=== PATIENT | female | born 1975 | race Caucasian/White ===

== ENCOUNTER 2019-09-28 08:42 | Emergency (ER) | payer MEDICAID ==
[~2019-09-28] VITALS: Ht 177.8 cm; Wt 116.0 kg
[2019-09-28] MEDS ORDERED: IPRATROPIUM BROMIDE (0.02%) 0.5MG/2.5ML NEB HHN ONE (09:45)
[2019-09-28] MEDS ORDERED: ALBUTEROL (0.083%) 2.5MG/3ML NEB HHN ONE (09:45)
[2019-09-28] MEDS ORDERED: IPRATROPIUM BROMIDE (0.02%) 0.5MG/2.5ML NEB HHN STA (11:06)
[2019-09-28] MEDS ORDERED: ALBUTEROL (0.083%) 2.5MG/3ML NEB HHN STA (11:06)
[2019-09-28] MEDS ORDERED: METHYLPREDNISOLONE SOD SUCC 125 MG/2 ML VIAL IM ONE (11:15)
[2019-09-28 13:25] VITALS: BP 140/93
== END 2019-09-28 13:36 | disposition home or self-care (01) ==
LOC: ER 08:42
DX: J06.9 Acute upper respiratory infection, unspecified (principal)
CPT/HCPCS: 71046; 87804; 94640; 96372; 99284; J2930; J7611; Z7610

== ENCOUNTER 2019-09-28 18:32 | Emergency (ER) | payer MEDICAID ==
[~2019-09-28] VITALS: Ht 175.3 cm; Wt 127.0 kg
[2019-09-28] MEDS ORDERED: ALBUTEROL (0.083%) 2.5MG/3ML NEB HHN STA (19:47)
[2019-09-28] MEDS ORDERED: IPRATROPIUM BROMIDE (0.02%) 0.5MG/2.5ML NEB HHN STA (19:47)
[2019-09-28 20:14] LABS: HEMATOCRIT. 39.6 % (36.0-48.0); HEMOGLOBIN. 13.4 g/dL (12.0-16.0); LYMPHOCYTES % 9.6 % (20.0-50.0); MEAN CORPUSCULAR HEMOGLOBIN 29.9 pg (28.0-32.0); MEAN CORPUSCULAR VOLUME 88.6 fL (81.0-99.0); MEAN PLATELET VOLUME 8.7 fl (7.4-10.4); NEUTROPHILS % 88.4 % (40.0-76.0); PLATELET 220 x1000/uL (130-400); RED BLOOD CELL COUNT 4.47 mill/uL (4.2-5.4); RED CELL DISTRIBUTION WIDTH 14.3 % (11.6-14.6)
[2019-09-28 20:21] LABS: CHLORIDE 107 mEq/L (98-107)
[2019-09-29 01:31] VITALS: BP 148/82
== END 2019-09-29 01:36 | disposition home or self-care (01) ==
LOC: ER 18:32
DX: J06.9 Acute upper respiratory infection, unspecified (principal); F17.200 Nicotine dependence, unspecified, uncomplicated; Z88.0 Allergy status to penicillin; Z90.49 Acquired absence of other specified parts of digestive tract
CPT/HCPCS: 36415; 71045; 80053; 83880; 84484; 85025; 93005; 94640; 99284; J7611; Z7610

== ENCOUNTER 2019-11-04 14:10 | Inpatient (IN) | payer MEDICAID ==
[~2019-11-04] VITALS: Ht 175.3 cm; Wt 136.5 kg
[2019-11-05] MEDS ORDERED: METHYLPREDNISOLONE SOD SUCC 125 MG/2 ML VIAL IV STA (01:14)
[2019-11-05] MEDS ORDERED: MORPHINE SULFATE 4 MG/ML CPJ (NOT FOR IM USE) IV STA (01:14)
[2019-11-05] MEDS ORDERED: ONDANSETRON HCL 4MG/2ML INJ IV STA (01:14)
[2019-11-05] MEDS ORDERED: SODIUM CHLORIDE 0.9% 1,000 ML IV ONE (01:14)
[2019-11-05] MEDS ORDERED: IPRATROPIUM BROMIDE (0.02%) 0.5MG/2.5ML NEB HHN STA (01:14)
[2019-11-05] MEDS ORDERED: MAGNESIUM 2 G PREMIX 50 ML IV ONE (01:15)
[2019-11-05] MEDS: ALBUTEROL (0.083%) 2.5MG/3ML NEB HHN SCH ×2 (01:30→02:00)
[2019-11-05 01:54] LABS: BASOPHILS % 0.9 % (0.0-2.0); EOSINOPHILS % 3.2 % (0.0-5.0); HEMATOCRIT. 42.6 % (36.0-48.0); HEMOGLOBIN. 14.3 g/dL (12.0-16.0); LYMPHOCYTES % 22.6 % (20.0-50.0); MEAN CORPUSCULAR HEMOGLOBIN 30.4 pg (28.0-32.0); MEAN CORPUSCULAR VOLUME 90.5 fL (81.0-99.0); MEAN PLATELET VOLUME 9.5 fl (7.4-10.4); MONOCYTES % 9.7 % (2.0-8.0); NEUTROPHILS % 63.6 % (40.0-76.0); PLATELET 341 x1000/uL (130-400); RED BLOOD CELL COUNT 4.71 mill/uL (4.2-5.4); RED CELL DISTRIBUTION WIDTH 15.5 % (11.6-14.6)
[2019-11-05 02:00] LABS: CHLORIDE 102 mEq/L (98-107)
[2019-11-05 09:47] LABS: BG CARBOXYHEMOGLOBIN 0.6 % (0.5-1.5); BG DEOXYHEMOGLOBIN 6.7 % (0.0-5.0); BG FRACTION INSPIRED OXYGEN 21; BG HCO3 ACT 22.3 mmol/L (22.0-26.0); BG METHEMOGLOBIN 0.3 % (0.0-1.5); BG OXYGEN SATURATION 93.2 % (92.0-98.5); BG OXYHEMOGLOBIN 92.4 % (94.0-97.0); BG PCO2 41.2 mmHg (35.0-45.0); BG PH 7.352 (7.350-7.450); BG SAMPLE SITE RIGHT RADIAL; BG TOTAL HEMOGLOBIN 13.4 g/dL (12.0-18.0); BG VENT MODE ROOM AIR
[2019-11-05] MEDS ORDERED: BENZONATATE 100MG CAPSULE PO PRN (10:45)
[2019-11-05] MEDS ORDERED: ONDANSETRON HCL 4MG/2ML INJ IV PRN (10:45)
[2019-11-05] MEDS ORDERED: ACETAMINOPHEN 325MG TABLET PO PRN (10:45)
[2019-11-05] MEDS ORDERED: IPRATROPIUM/ALBUTEROL 0.5-3(2.5)MG/3ML NEB HHN PRN (10:45)
[2019-11-05] MEDS: METHYLPREDNISOLONE SOD SUCC 40 MG/ML VIAL IV SCH ×2 (12:08→20:44)
[2019-11-05] MEDS ORDERED: BENZ-16 MT (17:31)
[2019-11-05] MEDS ORDERED: P20 MT (17:31)
[2019-11-05] MEDS ORDERED: ALBU18HF2 IH (17:31)
[2019-11-05] MEDS ORDERED: FLUT1DIS3 INH (17:31)
[2019-11-05 20:00] VITALS: BP 122/67
[2019-11-05 20:28] VITALS: BP 122/67
[2019-11-05] MEDS: GUAIFENESIN 600MG ER TABLET PO SCH (20:44)
[2019-11-06] VITALS (7 sets, daily range): BP systolic 110–123; BP diastolic 63–79
[2019-11-06] MEDS: IPRATROPIUM/ALBUTEROL 0.5-3(2.5)MG/3ML NEB HHN SCH ×6 (01:45→21:01)
[2019-11-06] MEDS: METHYLPREDNISOLONE SOD SUCC 40 MG/ML VIAL IV SCH ×3 (03:25→20:13)
[2019-11-06 08:39] LABS: CLARITY URINE CLEAR (CLEAR); COLOR URINE YELLOW (YELLOW); KETONES URINE NEGATIVE (NEGATIVE); LEUKOCYTE ESTERASE URINE NEGATIVE (NEGATIVE); NITRITE URINE NEGATIVE (NEGATIVE); OCCULT BLOOD URINE NEGATIVE (NEGATIVE); PH URINE 6.5 (4.5-8.0); PROTEIN URINE NEGATIVE (NEGATIVE); SPECIFIC GRAVITY URINE 1.018 (1.005-1.030)
[2019-11-06 09:01] LABS: CHLORIDE 104 mEq/L (98-107)
[2019-11-06 09:09] LABS: *AMPHETAMINES SCREEN URINE NEGATIVE (NEGATIVE)
[2019-11-06 09:10] LABS: *BARBITURATES SCREEN URINE NEGATIVE (NEGATIVE); *BENZODIAZEPINES SCREEN URINE NEGATIVE (NEGATIVE); *COCAINE SCREEN URINE NEGATIVE (NEGATIVE); METHADONE URINE SCREEN NEGATIVE (NEGATIVE); PHENCYCLIDINE URINE SCREEN NEGATIVE (NEGATIVE)
[2019-11-06 09:11] LABS: CANNABINOID URINE SCREEN NEGATIVE (NEGATIVE)
[2019-11-06 09:13] LABS: BASOPHILS % 0.3 % (0.0-2.0); EOSINOPHILS % 0.1 % (0.0-5.0); HEMATOCRIT. 39.1 % (36.0-48.0); HEMOGLOBIN. 13.1 g/dL (12.0-16.0); LYMPHOCYTES % 11.6 % (20.0-50.0); MEAN CORPUSCULAR HEMOGLOBIN 29.9 pg (28.0-32.0); MEAN CORPUSCULAR VOLUME 89.2 fL (81.0-99.0); MEAN PLATELET VOLUME 9.5 fl (7.4-10.4); MONOCYTES % 5.8 % (2.0-8.0); NEUTROPHILS % 82.2 % (40.0-76.0); PLATELET 277 x1000/uL (130-400); RED BLOOD CELL COUNT 4.38 mill/uL (4.2-5.4); RED CELL DISTRIBUTION WIDTH 15.2 % (11.6-14.6)
[2019-11-06 09:16] LABS: OPIATES URINE SCREEN PRESUMTIVE POSITIVE (NEGATIVE)
[2019-11-06] MEDS: GUAIFENESIN 600MG ER TABLET PO SCH ×2 (09:17→20:13)
[2019-11-06] MEDS ORDERED: IPRA3AMP9 NEB (12:55)
[2019-11-07] VITALS: BP 126/75
[2019-11-07] MEDS: IPRATROPIUM/ALBUTEROL 0.5-3(2.5)MG/3ML NEB HHN SCH ×4 (01:05→11:56)
[2019-11-07] MEDS: METHYLPREDNISOLONE SOD SUCC 40 MG/ML VIAL IV SCH ×2 (03:24→11:03)
[2019-11-07 04:00] VITALS: BP 129/56
[2019-11-07] MEDS: GUAIFENESIN 600MG ER TABLET PO SCH (08:50)
[2019-11-07 12:06] VITALS: BP 121/76
== END 2019-11-07 13:14 | disposition home or self-care (01) | DRG 141 ==
LOC: ER 14:10 → 7WST 11-05 02:47 → EDBEDREQTM 11-05 02:57 → EDBEDREQ 11-05 02:57 → ENRESERV 11-05 17:56
PROVIDERS: ADMIT Internal Medicine; ATTEND Internal Medicine
DX: J45.901 Unspecified asthma with (acute) exacerbation (principal); E66.01 Morbid (severe) obesity due to excess calories; E87.2 Acidosis; F17.210 Nicotine dependence, cigarettes, uncomplicated; J06.9 Acute upper respiratory infection, unspecified; Z90.89 Acquired absence of other organs; Z88.0 Allergy status to penicillin; Z71.6 Tobacco abuse counseling; Z71.3 Dietary counseling and surveillance; Z68.41 Body mass index [BMI] 40.0-44.9, adult; Z79.899 Other long term (current) drug therapy
CPT/HCPCS: 36415; 36600; 71045; 80048; 80053; 80305; 81003; 81025; 82375; 82805; 83605; 83880; 84145; 84484; 85025; 85379; 87804; 93005; 93970; 94640; 96365; 96375; 99285; 99406; J2270; J2405; J2920; J2930; J3475; J7030

== ENCOUNTER 2021-03-04 19:12 | Inpatient (IN) | payer MEDICAID, OTHER ==
[~2021-03-04] VITALS: Ht 158.8 cm; Wt 123.8 kg
[~2021-03-04 19:12] MED LIST: ALBU18HF2 IH; BENZ-16 MT; FLUT1DIS3 INH; IPRA3AMP9 NEB; P20 MT
[2021-03-04 21:14] LABS: CHLORIDE 104 mEq/L (98-107)
[2021-03-04 21:22] LABS: ETHANOL BLOOD < 10 mg/dL
[2021-03-04 21:24] LABS: LDL CHOLESTEROL 105 mg/dL (5-100)
[2021-03-04] MEDS ORDERED: ASPIRIN 300MG SUPP PR ONE (22:15)
[2021-03-04 22:34] LABS: CLARITY URINE CLOUDY (CLEAR); COLOR URINE YELLOW (YELLOW); KETONES URINE NEGATIVE (NEGATIVE); LEUKOCYTE ESTERASE URINE 3+ (NEGATIVE); NITRITE URINE NEGATIVE (NEGATIVE); OCCULT BLOOD URINE 3+ (NEGATIVE); PROTEIN URINE 3+ (NEGATIVE); SPECIFIC GRAVITY URINE 1.019 (1.005-1.030); UROBILINOGEN URINE 0.2 E.U./dL (0.2-1.0)
[2021-03-04 22:53] LABS: *AMPHETAMINES SCREEN URINE NEGATIVE (NEGATIVE); *BENZODIAZEPINES SCREEN URINE NEGATIVE (NEGATIVE); METHADONE URINE SCREEN NEGATIVE (NEGATIVE)
[2021-03-04 22:54] LABS: *BARBITURATES SCREEN URINE NEGATIVE (NEGATIVE); *COCAINE SCREEN URINE NEGATIVE (NEGATIVE); CANNABINOID URINE SCREEN NEGATIVE (NEGATIVE); OPIATES URINE SCREEN PRESUMTIVE POSITIVE (NEGATIVE); PHENCYCLIDINE URINE SCREEN NEGATIVE (NEGATIVE)
[2021-03-04 23:04] LABS: BASOPHILS % 0.7 % (0.0-2.0); EOSINOPHILS % 0.8 % (0.0-5.0); HEMATOCRIT. 27.4 % (36.0-48.0); HEMOGLOBIN. 9.2 g/dL (12.0-16.0); MEAN CORPUSCULAR HEMOGLOBIN 30.2 pg (28.0-32.0); MEAN CORPUSCULAR VOLUME 90.4 fL (81.0-99.0); MEAN PLATELET VOLUME 9.6 fl (7.4-10.4); MONOCYTES % 13.6 % (2.0-8.0); NEUTROPHILS % 49.9 % (40.0-76.0); RED BLOOD CELL COUNT 3.04 mill/uL (4.2-5.4); RED CELL DISTRIBUTION WIDTH 17.5 % (11.6-14.6)
[2021-03-04] MEDS ORDERED: IOHEXOL-350 100 ML BOTTLE ONE (23:36)
[2021-03-05] VITALS (8 sets, daily range): BP systolic 125–159; BP diastolic 50–113
[2021-03-05 08:42] LABS: HEMATOCRIT. 26.3 % (36.0-48.0); HEMOGLOBIN. 8.6 g/dL (12.0-16.0); MEAN CORPUSCULAR HEMOGLOBIN 30.1 pg (28.0-32.0); MEAN CORPUSCULAR VOLUME 91.3 fL (81.0-99.0); MEAN PLATELET VOLUME 9.3 fl (7.4-10.4); RED BLOOD CELL COUNT 2.88 mill/uL (4.2-5.4)
[2021-03-05 08:47] LABS: CHLORIDE 107 mEq/L (98-107)
[2021-03-05 08:55] LABS: LDL CHOLESTEROL 98 mg/dL (5-100)
[2021-03-05 08:56] LABS: HDL CHOLESTEROL 59 mg/dL (40-59)
[2021-03-05] MEDS ORDERED: PANTOPRAZOLE SODIUM 40 MG/VIAL IV SCH (09:00)
[2021-03-05] MEDS: ASPIRIN 300MG SUPP PR SCH ×2 (09:00→11:19)
[2021-03-05 09:11] LABS: PLATELET 35 x1000/uL (130-400)
[2021-03-05] MEDS: DEXT 5%/0.45% NACL KCL 20MEQ/L 1,000 ML IV SCH ×2 (11:20→21:36)
[2021-03-05 12:55] LABS: TOTAL IRON BINDING CAPACITY 238 ug/dL (250-450)
[2021-03-05 17:55] LABS: PLATELET ESTIMATE MARKEDLY DECREASED
[2021-03-05 20:44] LABS: CLARITY URINE CLOUDY (CLEAR); COLOR URINE YELLOW (YELLOW); KETONES URINE NEGATIVE (NEGATIVE); LEUKOCYTE ESTERASE URINE 3+ (NEGATIVE); NITRITE URINE NEGATIVE (NEGATIVE); OCCULT BLOOD URINE 2+ (NEGATIVE); PH URINE 7.5 (4.5-8.0); PROTEIN URINE 2+ (NEGATIVE); SPECIFIC GRAVITY URINE 1.012 (1.005-1.030); UROBILINOGEN URINE 0.2 E.U./dL (0.2-1.0)
[2021-03-05] MEDS ORDERED: LORAZEPAM 2MG/ML CPJ IV PRN (20:45)
[2021-03-05] MEDS: ATORVASTATIN CALCIUM 40MG TABLET PO SCH (21:35)
[2021-03-06] VITALS (11 sets, daily range): BP systolic 92–186; BP diastolic 37–113
[2021-03-06 05:59] LABS: HEMATOCRIT. 29.2 % (36.0-48.0); HEMOGLOBIN. 9.5 g/dL (12.0-16.0); MEAN CORPUSCULAR HEMOGLOBIN 30.3 pg (28.0-32.0); MEAN CORPUSCULAR VOLUME 93.6 fL (81.0-99.0); RED BLOOD CELL COUNT 3.12 mill/uL (4.2-5.4)
[2021-03-06 07:57] LABS: CHLORIDE 108 mEq/L (98-107)
[2021-03-06] MEDS: DEXT 5%/0.45% NACL KCL 20MEQ/L 1,000 ML IV SCH (10:40)
[2021-03-06] MEDS: LORAZEPAM 1MG TABLET PO PRN ×3 (10:46→18:35)
[2021-03-06] MEDS: LOSARTAN POTASSIUM 100 MG TABLET PO SCH (10:46)
[2021-03-06] MEDS: PANTOPRAZOLE 40MG DR TABLET PO SCH (10:53)
[2021-03-06] MEDS ORDERED: CEFTRIAXONE 1 G PREMIX 50 ML IV SCH (12:15)
[2021-03-06 12:28] LABS: PLATELET 29 x1000/uL (130-400)
[2021-03-06] MEDS: LEVOFLOXACIN 500MG TABLET PO SCH (12:40)
[2021-03-06 13:12] LABS: PLATELET ESTIMATE DECREASED
[2021-03-06 13:13] LABS: MEAN PLATELET VOLUME 9.9 fl (7.4-10.4); PLATELET 80 x1000/uL (130-400)
[2021-03-06] MEDS: RISPERIDONE 0.5MG TABLET PO SCH ×2 (14:31→17:24)
[2021-03-06] MEDS: HYDROCODONE/ACETAMINOPHEN 5/325MG TABLET PO PRN ×2 (14:32→18:34)
[2021-03-06] MEDS: ATORVASTATIN CALCIUM 40MG TABLET PO SCH (21:27)
[2021-03-06] MEDS: CLONIDINE 0.1MG TABLET PO PRN (21:34)
[2021-03-07] VITALS (11 sets, daily range): BP systolic 115–160; BP diastolic 65–103
[2021-03-07] MEDS: CLONIDINE 0.1MG TABLET PO PRN (00:08)
[2021-03-07] MEDS: RISPERIDONE 0.5MG TABLET PO SCH ×2 (08:51→16:01)
[2021-03-07] MEDS: PANTOPRAZOLE 40MG DR TABLET PO SCH (08:51)
[2021-03-07] MEDS: LORAZEPAM 1MG TABLET PO PRN ×3 (08:51→15:59)
[2021-03-07] MEDS: HYDROCODONE/ACETAMINOPHEN 5/325MG TABLET PO PRN ×3 (08:51→15:59)
[2021-03-07] MEDS: LOSARTAN POTASSIUM 100 MG TABLET PO SCH (08:51)
[2021-03-07] MEDS ORDERED: ACETAMINOPHEN 325MG TABLET PO PRN (11:30)
[2021-03-07] MEDS: LEVOFLOXACIN 500MG TABLET PO SCH (12:10)
[2021-03-07] MEDS: DEXT 5%/0.45% NACL KCL 20MEQ/L 1,000 ML IV SCH ×2 (13:20)
[2021-03-07] MEDS: ATORVASTATIN CALCIUM 40MG TABLET PO SCH (21:12)
[2021-03-08] VITALS (12 sets, daily range): BP systolic 0–149; BP diastolic 0–106
[2021-03-08] MEDS: DEXT 5%/0.45% NACL KCL 20MEQ/L 1,000 ML IV SCH (02:40)
[2021-03-08] MEDS: LORAZEPAM 1MG TABLET PO PRN ×3 (02:42→16:27)
[2021-03-08 06:25] LABS: HEMATOCRIT. 35.6 % (36.0-48.0); HEMOGLOBIN. 11.3 g/dL (12.0-16.0); MEAN CORPUSCULAR HEMOGLOBIN 29.7 pg (28.0-32.0); MEAN CORPUSCULAR VOLUME 93.7 fL (81.0-99.0); MEAN PLATELET VOLUME 9.4 fl (7.4-10.4); PLATELET 152 x1000/uL (130-400); RED CELL DISTRIBUTION WIDTH 18.6 % (11.6-14.6)
[2021-03-08] MEDS: PANTOPRAZOLE 40MG DR TABLET PO SCH (09:18)
[2021-03-08] MEDS: RISPERIDONE 0.5MG TABLET PO SCH ×2 (09:18→16:27)
[2021-03-08] MEDS: LOSARTAN POTASSIUM 100 MG TABLET PO SCH (09:18)
[2021-03-08] MEDS: LEVOFLOXACIN 500MG TABLET PO SCH (10:41)
[2021-03-08 19:07] LABS: PLATELET ESTIMATE NORMAL
[2021-03-08] MEDS: ATORVASTATIN CALCIUM 40MG TABLET PO SCH (22:31)
[2021-03-08] MEDS: NITROFURANTOIN 100MG M/M CAPSULE PO SCH (22:34)
[2021-03-09] VITALS: BP 0/0
[2021-03-09 02:00] VITALS: BP 0/0
[2021-03-09 04:00] VITALS: BP 113/84
[2021-03-09] MEDS: LORAZEPAM 1MG TABLET PO PRN (04:04)
[2021-03-09 06:00] VITALS: BP 162/90
[2021-03-09 06:19] LABS: HEMATOCRIT. 37.6 % (36.0-48.0); HEMOGLOBIN. 12.1 g/dL (12.0-16.0); MEAN CORPUSCULAR HEMOGLOBIN 29.9 pg (28.0-32.0); MEAN CORPUSCULAR VOLUME 93.1 fL (81.0-99.0); MEAN PLATELET VOLUME 9.4 fl (7.4-10.4); PLATELET 239 x1000/uL (130-400); RED BLOOD CELL COUNT 4.04 mill/uL (4.2-5.4); RED CELL DISTRIBUTION WIDTH 18.9 % (11.6-14.6)
[2021-03-09] MEDS: RISPERIDONE 0.5MG TABLET PO SCH (12:11)
[2021-03-09] MEDS: PANTOPRAZOLE 40MG DR TABLET PO SCH (12:11)
[2021-03-09] MEDS: NITROFURANTOIN 100MG M/M CAPSULE PO SCH ×2 (12:11→20:13)
[2021-03-09] MEDS: LOSARTAN POTASSIUM 100 MG TABLET PO SCH (12:12)
[2021-03-09 15:04] LABS: PLATELET ESTIMATE NORMAL
[2021-03-09 20:00] VITALS: BP 129/79
[2021-03-09] MEDS: ATORVASTATIN CALCIUM 40MG TABLET PO SCH (20:14)
[2021-03-09 22:00] VITALS: BP 112/65
[2021-03-10] VITALS: BP 126/87
[2021-03-10 02:00] VITALS: BP 139/89
[2021-03-10 05:43] VITALS: BP 132/73
[2021-03-10 08:00] VITALS: BP 128/79
[2021-03-10] MEDS: PANTOPRAZOLE 40MG DR TABLET PO SCH (09:00)
[2021-03-10] MEDS: NITROFURANTOIN 100MG M/M CAPSULE PO SCH (09:00)
[2021-03-10] MEDS: RISPERIDONE 0.5MG TABLET PO SCH (09:00)
[2021-03-10] MEDS: LOSARTAN POTASSIUM 100 MG TABLET PO SCH (09:00)
[2021-03-10] MEDS ORDERED: SODIUM BICARBONATE 4% (2.4MEQ) 5ML VIAL IV ONE (09:03)
[2021-03-10] MEDS ORDERED: LIDOCAINE HCL 1% 20ML VIAL (Pyxis) INJ ONE (09:03)
[2021-03-10 09:12] LABS: HEMATOCRIT 36.4 % (36.0-48.0); HEMOGLOBIN 11.7 g/dL (12.0-16.0); MEAN CORPUSCULAR HEMOGLOBIN 30.4 pg (28.0-32.0); MEAN CORPUSCULAR VOLUME 94.6 fL (81.0-99.0); PLATELET 263 x1000/uL (130-400); RED BLOOD CELL COUNT 3.85 mill/uL (4.2-5.4); RED CELL DISTRIBUTION WIDTH 19.2 % (11.6-14.6)
[2021-03-10 09:18] LABS: INR 1.1; PARTIAL THROMBOPLASTIN TIME 23.5 sec (23.4-31.0); PROTHROMBIN TIME 12.2 sec (9.6-11.0)
[2021-03-10] MEDS ORDERED: IOHEXOL-300 100 ML BOTTLE ONE (09:21)
[2021-03-10] MEDS ORDERED: HYDROMORPHONE HCL/PF 2MG/ML CPJ IV PRN (09:45)
[2021-03-10] MEDS ORDERED: ONDANSETRON HCL 4MG/2ML INJ IV PRN (09:45)
[2021-03-10] MEDS ORDERED: MEPERIDINE HCL/PF 25MG/ML CPJ IV PRN (09:45)
[2021-03-10] MEDS ORDERED: DEXAMETHASONE 4MG/ML 1ML VIAL ONE (09:53)
[2021-03-10] MEDS ORDERED: HYDROMORPHONE HCL/PF 2MG/ML (OR) ONE (09:54)
[2021-03-10] MEDS ORDERED: CALCIUM CHLORIDE 1GM/10ML SYR IV ONE (10:27)
[2021-03-10] MEDS ORDERED: CEFAZOLIN SODIUM 1000MG/VIAL ONE (10:28)
[2021-03-10 14:00] VITALS: BP 149/105
[2021-03-10 14:55] VITALS: BP 129/100
== END 2021-03-10 15:45 | DRG 45 ==
LOC: ER 19:12 → EDBEDREQSVC 21:17 → EDBEDREQTM 21:50 → EDBEDREQ 21:50 → EDBEDREQSVC 21:50 → 5EST 21:53 → EDBEDREQTM 03-05 02:08 → EDBEDREQSVC 03-05 02:08 → ENRESERV 03-05 02:16 → 5EST 03-05 04:57
PROVIDERS: ADMIT Internal Medicine; ATTEND Internal Medicine
PROC: 4A10X4Z Monitoring of Central Nervous Electrical Activity, External Approach (ICD-10-PCS; 2021-03-07)
PROC: 0T913ZZ Drainage of Left Kidney, Percutaneous Approach (ICD-10-PCS; principal; 2021-03-10)
PROC: 0T903ZZ Drainage of Right Kidney, Percutaneous Approach (ICD-10-PCS; 2021-03-10)
DX: I63.512 Cerebral infarction due to unspecified occlusion or stenosis of left middle cerebral artery (principal); G93.40 Encephalopathy, unspecified; D69.6 Thrombocytopenia, unspecified; E87.1 Hypo-osmolality and hyponatremia; R41.4 Neurologic neglect syndrome; E66.01 Morbid (severe) obesity due to excess calories; C67.9 Malignant neoplasm of bladder, unspecified; D64.9 Anemia, unspecified; G51.0 Bell's palsy; Z20.822 Contact with and (suspected) exposure to COVID-19; R47.01 Aphasia; I10 Essential (primary) hypertension; N39.0 Urinary tract infection, site not specified; Z88.0 Allergy status to penicillin; Z85.42 Personal history of malignant neoplasm of other parts of uterus; Z90.49 Acquired absence of other specified parts of digestive tract; Z79.899 Other long term (current) drug therapy; Z68.42 Body mass index [BMI] 45.0-49.9, adult
CPT/HCPCS: 36415; 50432; 50435; 70496; 70498; 70551; 71045; 76770; 80048; 80053; 80061; 80305; 80320; 81003; 82728; 82962; 83540; 83550; 83721; 84484; 85025; 85027; 87077; 87186; 87426; 92610; 93005; 95816; 97110; 97112; 97162; 97166; 97530; 99285; A6261; C1725; C1729; C1769; C9113; J0690; J1100; J1170; J3490; J7040; Q9967; G0480

== ENCOUNTER 2021-07-22 00:21 | Inpatient (IN) | payer MEDICAID, OTHER ==
[~2021-07-22] VITALS: Ht 175.3 cm; Wt 112.5 kg
[2021-07-22] MEDS ORDERED: MORPHINE SULFATE 4 MG/ML CPJ (NOT FOR IM USE) IV STA (00:34)
[2021-07-22] MEDS ORDERED: ONDANSETRON HCL 4MG/2ML INJ IV STA (00:34)
[2021-07-22] MEDS ORDERED: SODIUM CHLORIDE 0.9% 1,000 ML IV ONE (00:45)
[2021-07-22 01:03] LABS: BASOPHILS % 0.4 % (0.0-2.0); EOSINOPHILS % 0.2 % (0.0-5.0); HEMATOCRIT. 39.3 % (36.0-48.0); HEMOGLOBIN. 12.9 g/dL (12.0-16.0); LYMPHOCYTES % 5.6 % (20.0-50.0); MEAN CORPUSCULAR HEMOGLOBIN 30.3 pg (28.0-32.0); MEAN CORPUSCULAR VOLUME 92.2 fL (81.0-99.0); MONOCYTES % 4.5 % (2.0-8.0); NEUTROPHILS % 89.3 % (40.0-76.0); RED BLOOD CELL COUNT 4.27 mill/uL (4.2-5.4); RED CELL DISTRIBUTION WIDTH 16.6 % (11.6-14.6)
[2021-07-22 01:20] LABS: CHLORIDE 103 mEq/L (98-107)
[2021-07-22 01:24] LABS: HCG SCREEN NEGATIVE
[2021-07-22 01:55] LABS: CLARITY URINE TURBID (CLEAR); KETONES URINE NEGATIVE (NEGATIVE); LEUKOCYTE ESTERASE URINE 3+ (NEGATIVE); NITRITE URINE NEGATIVE (NEGATIVE); OCCULT BLOOD URINE 1+ (NEGATIVE); OCCULT BLOOD URINE NEGATIVE (NEGATIVE); PH URINE 7.5 (4.5-8.0); PH URINE >=9.0 (4.5-8.0); PROTEIN URINE 2+ (NEGATIVE); SPECIFIC GRAVITY URINE 1.014 (1.005-1.030); UROBILINOGEN URINE 0.2 E.U./dL (0.2-1.0)
[2021-07-22 02:00] LABS: PROTHROMBIN TIME 10.8 sec (9.6-11.0)
[2021-07-22 02:02] LABS: MEAN PLATELET VOLUME 7.9 fl (7.4-10.4); PLATELET 401 x1000/uL (130-400)
[2021-07-22] MEDS ORDERED: CEFEPIME 2,000 MG in DEXT 5% WATER 100 ML IV SCH (02:30)
[2021-07-22] MEDS ORDERED: MORPHINE SULFATE 4 MG/ML CPJ (NOT FOR IM USE) IV ONE (02:30)
[2021-07-22 02:39] LABS: COLOR URINE ORANGE (YELLOW)
[2021-07-22 04:16] LABS: COLOR URINE YELLOW (YELLOW)
[2021-07-22 06:24] LABS: CLARITY URINE CLOUDY (CLEAR)
[2021-07-22] MEDS ORDERED: MORPHINE SULFATE 2 MG/ML CPJ (NOT FOR IM USE) IV SCH (06:30)
[2021-07-22] MEDS ORDERED: ONDANSETRON HCL 4MG/2ML INJ IV PRN (06:30)
[2021-07-22] MEDS ORDERED: NALOXONE HCL 0.4MG/ML VIAL IV PRN (07:00)
[2021-07-22 08:00] VITALS: BP 114/36
[2021-07-22] MEDS ORDERED: PIPERACILLIN/TAZOBACTAM 3.375GM/50ML PREMIX IV ONE (09:00)
[2021-07-22 10:14] VITALS: BP 114/46
[2021-07-22] MEDS: MORPHINE SULFATE 2 MG/ML CPJ (NOT FOR IM USE) IV PRN ×3 (10:53→20:08)
[2021-07-22] MEDS ORDERED: METH-773 PO (11:38)
[2021-07-22] MEDS ORDERED: LORA-249 PO (11:41)
[2021-07-22] MEDS ORDERED: PREG50CA PO (11:41)
[2021-07-22] MEDS ORDERED: OXYC10TA85 PO (11:41)
[2021-07-22] MEDS ORDERED: TAMS-11 PO (11:41)
[2021-07-22] MEDS ORDERED: OXYB5TAB17 PO (11:41)
[2021-07-22] MEDS ORDERED: CITA10SO PO (11:41)
[2021-07-22 12:00] VITALS: BP 107/66
[2021-07-22] MEDS ORDERED: *PATIENT'S OWN MEDICATION STORAGE XX SCH (12:00)
[2021-07-22] MEDS: PIPERACILLIN/TAZOBACTAM 3.375 G in DEXTROSE 5% WATER 50 ML IV SCH ×2 (12:17→20:08)
[2021-07-22] MEDS: SODIUM CHLORIDE 0.9% 1,000 ML IV SCH (12:18)
[2021-07-22] MEDS: ENOXAPARIN 30MG/0.3ML SYR SUBCUT SCH ×2 (12:18→20:07)
[2021-07-22] MEDS: HYDROCODONE/ACETAMINOPHEN 5/325MG TABLET PO PRN ×2 (12:29→18:17)
[2021-07-22 16:00] VITALS: BP 119/71
[2021-07-22 20:00] VITALS: BP 105/62
[2021-07-23] VITALS (7 sets, daily range): BP systolic 90–125; BP diastolic 37–75
[2021-07-23] MEDS: SODIUM CHLORIDE 0.9% 1,000 ML IV SCH ×2 (05:30→15:10)
[2021-07-23] MEDS: MORPHINE SULFATE 2 MG/ML CPJ (NOT FOR IM USE) IV PRN ×5 (05:42→23:56)
[2021-07-23 05:47] LABS: BASOPHILS % 0.2 % (0.0-2.0); EOSINOPHILS % 1.3 % (0.0-5.0); HEMATOCRIT. 30.5 % (36.0-48.0); LYMPHOCYTES % 9.1 % (20.0-50.0); MEAN CORPUSCULAR HEMOGLOBIN 29.9 pg (28.0-32.0); MEAN CORPUSCULAR VOLUME 91.2 fL (81.0-99.0); MEAN PLATELET VOLUME 8.3 fl (7.4-10.4); MONOCYTES % 4.8 % (2.0-8.0); NEUTROPHILS % 84.6 % (40.0-76.0); PLATELET 326 x1000/uL (130-400); RED BLOOD CELL COUNT 3.35 mill/uL (4.2-5.4); RED CELL DISTRIBUTION WIDTH 16.8 % (11.6-14.6)
[2021-07-23] MEDS: ENOXAPARIN 30MG/0.3ML SYR SUBCUT SCH (09:17)
[2021-07-23] MEDS: PIPERACILLIN/TAZOBACTAM 3.375 G in DEXTROSE 5% WATER 50 ML IV SCH ×2 (09:17→20:46)
[2021-07-23] MEDS: HYDROCODONE/ACETAMINOPHEN 5/325MG TABLET PO PRN (16:18)
[2021-07-23] MEDS ORDERED: LORAZEPAM 0.5MG TABLET PO NR (16:45)
[2021-07-23] MEDS: HYDROCODONE/ACETAMINOPHEN 10/325MG TABLET PO PRN ×2 (17:33→21:56)
[2021-07-24] VITALS (19 sets, daily range): BP systolic 96–125; BP diastolic 45–64
[2021-07-24] MEDS: HYDROCODONE/ACETAMINOPHEN 10/325MG TABLET PO PRN ×2 (02:15→06:41)
[2021-07-24] MEDS: SODIUM CHLORIDE 0.9% 1,000 ML IV SCH (04:11)
[2021-07-24] MEDS: MORPHINE SULFATE 2 MG/ML CPJ (NOT FOR IM USE) IV PRN (04:39)
[2021-07-24 06:35] LABS: HEMATOCRIT. 30.2 % (36.0-48.0); HEMOGLOBIN. 9.8 g/dL (12.0-16.0); MEAN CORPUSCULAR HEMOGLOBIN 29.8 pg (28.0-32.0); MEAN CORPUSCULAR VOLUME 91.3 fL (81.0-99.0); MEAN PLATELET VOLUME 8.3 fl (7.4-10.4); PLATELET 322 x1000/uL (130-400); RED BLOOD CELL COUNT 3.31 mill/uL (4.2-5.4); RED CELL DISTRIBUTION WIDTH 16.9 % (11.6-14.6)
[2021-07-24 07:28] LABS: PHOSPHORUS 4.5 mg/dL (2.5-4.9)
[2021-07-24] MEDS ORDERED: FENTANYL CITRATE/PF 50MCG/ML 2ML VIAL ONE (07:31)
[2021-07-24] MEDS ORDERED: IOHEXOL-300 50 ML BOTTLE IV ONE (07:31)
[2021-07-24] MEDS ORDERED: LIDOCAINE HCL 1% 20ML VIAL (Pyxis) INJ ONE (07:31)
[2021-07-24] MEDS ORDERED: SODIUM BICARBONATE 4% (2.4MEQ) 5ML VIAL IV ONE (07:31)
[2021-07-24] MEDS ORDERED: FENTANYL CITRATE/PF 50MCG/ML 2ML VIAL IV ONE (08:30)
[2021-07-24] MEDS: ENOXAPARIN 40MG/0.4ML SYR SUBCUT SCH (09:36)
[2021-07-24] MEDS: PIPERACILLIN/TAZOBACTAM 3.375 G in DEXTROSE 5% WATER 50 ML IV SCH ×2 (09:36→22:25)
[2021-07-24 11:44] LABS: PLATELET ESTIMATE NORMAL
[2021-07-24] MEDS: HYDROMORPHONE HCL/PF 2MG/ML CPJ IV PRN ×2 (12:41→20:57)
[2021-07-24] MEDS: OXYCODONE HCL 5MG TABLET PO PRN ×2 (17:29→23:22)
[2021-07-25] VITALS: BP 100/53
[2021-07-25 04:00] VITALS: BP 113/47
[2021-07-25] MEDS: SODIUM CHLORIDE 0.9% 1,000 ML IV SCH ×2 (06:55→20:05)
[2021-07-25 07:35] LABS: BASOPHILS % 0.6 % (0.0-2.0); HEMATOCRIT. 30.1 % (36.0-48.0); HEMOGLOBIN. 9.8 g/dL (12.0-16.0); LYMPHOCYTES % 11.9 % (20.0-50.0); MEAN CORPUSCULAR HEMOGLOBIN 29.7 pg (28.0-32.0); MEAN CORPUSCULAR VOLUME 91.3 fL (81.0-99.0); MEAN PLATELET VOLUME 8.4 fl (7.4-10.4); MONOCYTES % 5.3 % (2.0-8.0); NEUTROPHILS % 80.2 % (40.0-76.0); PLATELET 286 x1000/uL (130-400); RED CELL DISTRIBUTION WIDTH 17.6 % (11.6-14.6)
[2021-07-25 08:00] VITALS: BP 103/54
[2021-07-25 08:14] LABS: PHOSPHORUS 3.5 mg/dL (2.5-4.9)
[2021-07-25] MEDS: PIPERACILLIN/TAZOBACTAM 3.375 G in DEXTROSE 5% WATER 50 ML IV SCH ×2 (08:19→20:05)
[2021-07-25] MEDS: ENOXAPARIN 40MG/0.4ML SYR SUBCUT SCH (08:19)
[2021-07-25] MEDS: HYDROMORPHONE HCL/PF 2MG/ML CPJ IV PRN ×2 (08:20→11:39)
[2021-07-25 12:00] VITALS: BP 121/61
[2021-07-25] MEDS: OXYCODONE HCL 5MG TABLET PO PRN ×3 (14:10→22:31)
[2021-07-25] MEDS ORDERED: FOSF3PAC PO (15:37)
[2021-07-25 16:00] VITALS: BP 104/65
[2021-07-25 20:00] VITALS: BP 127/66
[2021-07-26] VITALS: BP 110/60
[2021-07-26 04:00] VITALS: BP 124/67
[2021-07-26 05:30] LABS: PHOSPHORUS 3.3 mg/dL (2.5-4.9)
[2021-07-26 05:37] LABS: HEMATOCRIT. 33.6 % (36.0-48.0); HEMOGLOBIN. 11.2 g/dL (12.0-16.0); MEAN CORPUSCULAR HEMOGLOBIN 30.1 pg (28.0-32.0); MEAN CORPUSCULAR VOLUME 90.1 fL (81.0-99.0); MEAN PLATELET VOLUME 8.4 fl (7.4-10.4); PLATELET 294 x1000/uL (130-400); RED BLOOD CELL COUNT 3.73 mill/uL (4.2-5.4); RED CELL DISTRIBUTION WIDTH 17.2 % (11.6-14.6)
[2021-07-26] MEDS: OXYCODONE HCL 5MG TABLET PO PRN (06:25)
[2021-07-26 08:00] VITALS: BP 153/81
[2021-07-26] MEDS: ENOXAPARIN 40MG/0.4ML SYR SUBCUT SCH (08:38)
[2021-07-26] MEDS: PIPERACILLIN/TAZOBACTAM 3.375 G in DEXTROSE 5% WATER 50 ML IV SCH (08:38)
[2021-07-26] MEDS: SODIUM CHLORIDE 0.9% 1,000 ML IV SCH (08:39)
[2021-07-26 09:10] VITALS: BP 153/81
[2021-07-26 11:59] LABS: PLATELET ESTIMATE NORMAL
== END 2021-07-26 10:16 | disposition home or self-care (01) | DRG 720 ==
LOC: ER 00:21 → MICUSO 01:41 → 7EST 04:50
PROVIDERS: ADMIT Internal Medicine; ATTEND Internal Medicine
PROC: 0T25X0Z Change Drainage Device in Kidney, External Approach (ICD-10-PCS; principal; 2021-07-24)
DX: A41.9 Sepsis, unspecified organism (principal); N17.0 Acute kidney failure with tubular necrosis; E44.0 Moderate protein-calorie malnutrition; D73.89 Other diseases of spleen; E87.1 Hypo-osmolality and hyponatremia; C67.9 Malignant neoplasm of bladder, unspecified; D64.9 Anemia, unspecified; N13.8 Other obstructive and reflux uropathy; C68.0 Malignant neoplasm of urethra; N13.6 Pyonephrosis; E66.9 Obesity, unspecified; J45.909 Unspecified asthma, uncomplicated; Z20.822 Contact with and (suspected) exposure to COVID-19; N26.1 Atrophy of kidney (terminal); N89.8 Other specified noninflammatory disorders of vagina; R65.20 Severe sepsis without septic shock; Z82.49 Family history of ischemic heart disease and other diseases of the circulatory system; Z85.51 Personal history of malignant neoplasm of bladder; Z86.73 Personal history of transient ischemic attack (TIA), and cerebral infarction without residual deficits; Z88.0 Allergy status to penicillin; Z90.49 Acquired absence of other specified parts of digestive tract; Z79.899 Other long term (current) drug therapy; Z68.36 Body mass index [BMI] 36.0-36.9, adult
CPT/HCPCS: 36415; 50435; 71045; 74176; 76700; 80048; 80053; 81003; 83605; 83735; 84100; 84145; 84484; 84703; 85025; 87077; 87186; 93005; 99152; 99153; 99291; C1729; C1769; C1893; J0692; J1170; J1650; J2270; J2405; J2543; J3010; J3490; J7030; J7040; J7060; Q9967; U0003; U0005; G0500

== ENCOUNTER 2021-08-24 14:03 | Emergency (ER) | payer OTHER ==
[~2021-08-24] VITALS: Ht 167.6 cm; Wt 85.0 kg
[~2021-08-24 14:03] MED LIST changes: +CITA10SO PO; +FOSF3PAC PO; +LORA-249 PO; +METH-773 PO; +NITR100C MT; +OXYB5TAB17 PO; +OXYC10TA85 PO; +PREG50CA PO; +SULF-299 MT; +TAMS-11 PO
[2021-08-24] MEDS ORDERED: OXYCODONE HCL 10MG TABLET SR 12HR PO ONE (15:45)
[2021-08-24] MEDS ORDERED: MORPHINE SULFATE 4 MG/ML CPJ (NOT FOR IM USE) IV ONE (17:30)
[2021-08-24] MEDS ORDERED: MORPHINE SULFATE 2 MG/ML CPJ (NOT FOR IM USE) IV NR (18:00)
[2021-08-24] MEDS ORDERED: OXYC10TA85 MT (19:34)
[2021-08-24 19:53] VITALS: BP 127/69
== END 2021-08-24 19:54 | disposition home or self-care (01) ==
LOC: ER 14:03
DX: G89.29 Other chronic pain (principal); R10.32 Left lower quadrant pain; Z90.49 Acquired absence of other specified parts of digestive tract; Z86.73 Personal history of transient ischemic attack (TIA), and cerebral infarction without residual deficits; Z85.51 Personal history of malignant neoplasm of bladder; Z88.0 Allergy status to penicillin
CPT/HCPCS: 96374; 99285; J2270; Z7610

== ENCOUNTER 2021-08-25 09:29 | Emergency (ER) | payer OTHER ==
[~2021-08-25] VITALS: Ht 167.6 cm; Wt 75.0 kg
[~2021-08-25 09:29] MED LIST changes: +OXYC10TA85 MT
[2021-08-25] MEDS ORDERED: MORPHINE SULFATE 4 MG/ML CPJ (NOT FOR IM USE) IV ONE ×2 (09:45→11:00)
[2021-08-25] MEDS ORDERED: MORPHINE SULFATE 2 MG/ML CPJ (NOT FOR IM USE) IV SCH ×2 (10:15→11:15)
[2021-08-25 10:37] LABS: BASOPHILS % 1.1 % (0.0-2.0); EOSINOPHILS % 1.4 % (0.0-5.0); HEMATOCRIT. 40.2 % (36.0-48.0); HEMOGLOBIN. 13.1 g/dL (12.0-16.0); LYMPHOCYTES % 22.5 % (20.0-50.0); MEAN CORPUSCULAR HEMOGLOBIN 30.1 pg (28.0-32.0); MEAN CORPUSCULAR VOLUME 92.2 fL (81.0-99.0); MEAN PLATELET VOLUME 8.5 fl (7.4-10.4); MONOCYTES % 6.4 % (2.0-8.0); NEUTROPHILS % 68.6 % (40.0-76.0); PLATELET 315 x1000/uL (130-400); RED BLOOD CELL COUNT 4.36 mill/uL (4.2-5.4); RED CELL DISTRIBUTION WIDTH 18.3 % (11.6-14.6)
[2021-08-25 10:41] LABS: PROTHROMBIN TIME 11.1 sec (9.6-11.0)
[2021-08-25 10:59] LABS: CHLORIDE 113 mEq/L (98-107)
[2021-08-25 11:31] LABS: CLARITY URINE CLOUDY (CLEAR); COLOR URINE YELLOW (YELLOW); KETONES URINE TRACE (NEGATIVE); LEUKOCYTE ESTERASE URINE 3+ (NEGATIVE); NITRITE URINE POSITIVE (NEGATIVE); OCCULT BLOOD URINE 1+ (NEGATIVE); PH URINE 6.5 (4.5-8.0); PROTEIN URINE 2+ (NEGATIVE); SPECIFIC GRAVITY URINE 1.021 (1.005-1.030)
[2021-08-25 11:40] VITALS: BP 124/82
[2021-08-25] MEDS ORDERED: ONDANSETRON HCL 4MG/2ML INJ IV PRN (13:15)
[2021-08-25] MEDS ORDERED: ACETAMINOPHEN 325MG TABLET PO PRN (13:15)
[2021-08-25] MEDS ORDERED: HYDROCODONE/ACETAMINOPHEN 10/325MG TABLET PO PRN (13:15)
[2021-08-25] MEDS ORDERED: NALOXONE HCL 0.4MG/ML VIAL IV PRN (13:30)
[2021-08-25] MEDS ORDERED: LEVOFLOXACIN 500MG PREMIX 100 ML IV SCH (14:00)
== END 2021-08-25 16:59 | disposition left against medical advice (07) ==
LOC: ER 09:41 → CANBEDREQ 16:57 → ER 16:59
DX: R10.2 Pelvic and perineal pain (principal); Z88.0 Allergy status to penicillin; Z79.899 Other long term (current) drug therapy; Z86.73 Personal history of transient ischemic attack (TIA), and cerebral infarction without residual deficits; Z90.49 Acquired absence of other specified parts of digestive tract
CPT/HCPCS: 36415; 80053; 81003; 83690; 85025; 85610; 87086; 87106; 96365; 96375; 96376; 99284; J1956; J2270; Z7610

== ENCOUNTER 2021-08-26 09:25 | Inpatient (IN) | payer OTHER ==
[~2021-08-26] VITALS: Ht 160 cm; Wt 102.5 kg
[2021-08-26] MEDS ORDERED: HYDROCODONE/ACETAMINOPHEN 5/325MG TABLET PO STA (14:38)
[2021-08-26] MEDS ORDERED: MORPHINE SULFATE 4 MG/ML CPJ (NOT FOR IM USE) IV STA (14:38)
[2021-08-26] MEDS ORDERED: SODIUM CHLORIDE 0.9% 1,000 ML IV ONE (14:45)
[2021-08-26 15:18] LABS: BASOPHILS % 0.8 % (0.0-2.0); EOSINOPHILS % 0.3 % (0.0-5.0); HEMOGLOBIN. 11.7 g/dL (12.0-16.0); LYMPHOCYTES % 9.5 % (20.0-50.0); MEAN CORPUSCULAR VOLUME 92.1 fL (81.0-99.0); MEAN PLATELET VOLUME 8.2 fl (7.4-10.4); MONOCYTES % 4.9 % (2.0-8.0); NEUTROPHILS % 84.5 % (40.0-76.0); PLATELET 326 x1000/uL (130-400); RED BLOOD CELL COUNT 3.91 mill/uL (4.2-5.4); RED CELL DISTRIBUTION WIDTH 17.9 % (11.6-14.6)
[2021-08-26 15:22] LABS: CHLORIDE 107 mEq/L (98-107)
[2021-08-26 15:25] LABS: INR 1.1; PROTHROMBIN TIME 11.8 sec (9.6-11.0)
[2021-08-26] MEDS ORDERED: MORPHINE SULFATE 10 MG/ML CPJ IM ONE (16:45)
[2021-08-26] MEDS ORDERED: MORPHINE SULFATE 4 MG/ML CPJ (NOT FOR IM USE) IV ONE (18:30)
[2021-08-26 19:26] LABS: CLARITY URINE TURBID (CLEAR); COLOR URINE YELLOW (YELLOW); KETONES URINE TRACE (NEGATIVE); LEUKOCYTE ESTERASE URINE 3+ (NEGATIVE); NITRITE URINE POSITIVE (NEGATIVE); OCCULT BLOOD URINE 2+ (NEGATIVE); PH URINE 5.5 (4.5-8.0); PROTEIN URINE 3+ (NEGATIVE); SPECIFIC GRAVITY URINE 1.016 (1.005-1.030); UROBILINOGEN URINE 0.2 E.U./dL (0.2-1.0)
[2021-08-26 19:27] LABS: CLARITY URINE CLOUDY (CLEAR); COLOR URINE YELLOW (YELLOW); KETONES URINE 2+ (NEGATIVE); LEUKOCYTE ESTERASE URINE 2+ (NEGATIVE); NITRITE URINE POSITIVE (NEGATIVE); OCCULT BLOOD URINE 1+ (NEGATIVE); PH URINE 6.5 (4.5-8.0); PROTEIN URINE 2+ (NEGATIVE); SPECIFIC GRAVITY URINE 1.019 (1.005-1.030); UROBILINOGEN URINE 0.2 E.U./dL (0.2-1.0)
[2021-08-26] MEDS: MEROPENEM 500 MG in SODIUM CHLORIDE 0.9% 50 ML IV SCH (20:25)
[2021-08-26 20:32] LABS: HCG SCREEN NEGATIVE
[2021-08-26 22:12] VITALS: BP 124/69
[2021-08-26 22:17] VITALS: BP 125/64
[2021-08-27] VITALS: BP_SYST 131; BP_SYST 145; BP_DIAS 70; BP_DIAS 87
[2021-08-27] MEDS ORDERED: HYDROCODONE/ACETAMINOPHEN 5/325MG TABLET PO PRN (00:30)
[2021-08-27] MEDS ORDERED: SODIUM CHLORIDE 0.9% 1,000 ML IV SCH (00:45)
[2021-08-27] MEDS ORDERED: KETOROLAC 10MG TABLET PO PRN (01:00)
[2021-08-27 04:00] VITALS: BP 126/69
[2021-08-27] MEDS: MEROPENEM 500 MG in SODIUM CHLORIDE 0.9% 50 ML IV SCH (04:00)
[2021-08-27 06:38] LABS: HEMATOCRIT 30.2 % (36.0-48.0); MEAN CORPUSCULAR HEMOGLOBIN 30.4 pg (28.0-32.0); MEAN CORPUSCULAR VOLUME 91.9 fL (81.0-99.0); PLATELET 255 x1000/uL (130-400); RED BLOOD CELL COUNT 3.29 mill/uL (4.2-5.4); RED CELL DISTRIBUTION WIDTH 18.1 % (11.6-14.6)
[2021-08-27 08:00] VITALS: BP 133/80
[2021-08-27 09:14] VITALS: BP 133/80
[2021-08-27] MEDS ORDERED: CLONIDINE 0.1MG TABLET PO PRN (12:30)
[2021-08-27] MEDS ORDERED: DOCUSATE SODIUM 100MG CAPSULE PO PRN (12:30)
[2021-08-27] MEDS ORDERED: MAGNESIUM/ALUMINUM HYDROXIDE/SIMETHICONE 30ML UDC PO PRN (12:30)
[2021-08-27] MEDS ORDERED: IPRATROPIUM/ALBUTEROL 0.5-3(2.5)MG/3ML NEB HHN PRN (12:30)
[2021-08-27] MEDS ORDERED: LORAZEPAM 0.5MG TABLET PO PRN (12:30)
[2021-08-27] MEDS ORDERED: ACETAMINOPHEN 325MG TABLET PO PRN (12:30)
[2021-08-27] MEDS ORDERED: ONDANSETRON HCL 4MG/2ML INJ IV PRN (12:30)
[2021-08-27] MEDS ORDERED: ENOXAPARIN 40MG/0.4ML SYR SUBCUT SCH ×2 (12:30→13:00)
[2021-08-27] MEDS ORDERED: NALOXONE HCL 0.4MG/ML VIAL IV PRN (12:45)
[2021-08-27] MEDS ORDERED: OXYCODONE HCL 5MG TABLET PO PRN (12:45)
[2021-08-27] MEDS ORDERED: TAMSULOSIN HCL 0.4MG SR CAPSULE PO SCH (13:00)
[2021-08-27] MEDS ORDERED: PREGABALIN 50 MG CAPSULE PO SCH (14:00)
[2021-08-27] MEDS ORDERED: METHOCARBAMOL 500MG TABLET PO SCH (14:00)
[2021-08-27] MEDS ORDERED: OXYBUTYNIN CHLORIDE 5MG TABLET PO SCH (14:00)
[2021-08-27] MEDS ORDERED: MEROPENEM 500 MG in SODIUM CHLORIDE 0.9% 50 ML IV SCH (14:00)
[2021-08-28] MEDS ORDERED: OMEPRAZOLE 20MG CAPSULE EXTENDED RELEASE PO SCH (06:40)
== END 2021-08-27 12:15 | disposition left against medical advice (07) | DRG 463 ==
LOC: ER 10:06 → 7EST 20:23 → EDBEDREQTM 20:31 → EDBEDREQ 20:31 → ENRESERV 21:16
PROVIDERS: ADMIT Internal Medicine; ATTEND Internal Medicine
DX: N39.0 Urinary tract infection, site not specified (principal); D64.9 Anemia, unspecified; E66.9 Obesity, unspecified; Z53.29 Procedure and treatment not carried out because of patient's decision for other reasons; Z82.49 Family history of ischemic heart disease and other diseases of the circulatory system; Z86.73 Personal history of transient ischemic attack (TIA), and cerebral infarction without residual deficits; Z68.41 Body mass index [BMI] 40.0-44.9, adult; Z87.440 Personal history of urinary (tract) infections; Z90.49 Acquired absence of other specified parts of digestive tract; Z71.3 Dietary counseling and surveillance; Z85.51 Personal history of malignant neoplasm of bladder; Z88.0 Allergy status to penicillin; Z79.899 Other long term (current) drug therapy; Z93.6 Other artificial openings of urinary tract status
CPT/HCPCS: 36415; 74176; 80048; 80053; 81003; 83605; 84703; 85025; 85027; 93005; 99285; J2185; J2270; J7030

== ENCOUNTER 2021-11-04 16:20 | Inpatient (IN) | payer MEDICAID, OTHER ==
[~2021-11-04] VITALS: Ht 165.1 cm; Wt 96.6 kg
[2021-11-04 18:22] LABS: HEMATOCRIT. 45.2 % (36.0-48.0); HEMOGLOBIN. 14.6 g/dL (12.0-16.0); MEAN CORPUSCULAR HEMOGLOBIN 29.9 pg (28.0-32.0); MEAN CORPUSCULAR VOLUME 92.5 fL (81.0-99.0); MEAN PLATELET VOLUME 8.8 fl (7.4-10.4); PLATELET 105 x1000/uL (130-400); RED BLOOD CELL COUNT 4.88 mill/uL (4.2-5.4); RED CELL DISTRIBUTION WIDTH 20.5 % (11.6-14.6)
[2021-11-04 18:29] LABS: CLARITY URINE TURBID (CLEAR); COLOR URINE DARK YELLOW (YELLOW); KETONES URINE TRACE (NEGATIVE); LEUKOCYTE ESTERASE URINE 3+ (NEGATIVE); NITRITE URINE NEGATIVE (NEGATIVE); OCCULT BLOOD URINE 3+ (NEGATIVE); PROTEIN URINE 3+ (NEGATIVE); SPECIFIC GRAVITY URINE 1.024 (1.005-1.030)
[2021-11-04] MEDS ORDERED: LEVOFLOXACIN 750MG PREMIX 150 ML IV ONE (21:15)
[2021-11-04 22:08] LABS: CHLORIDE 101 mEq/L (98-107)
[2021-11-04 23:36] LABS: PLATELET ESTIMATE DECREASED
[2021-11-05 09:00] VITALS: BP 127/88
[2021-11-05] MEDS ORDERED: KETOROLAC 15MG/ML VIAL IV PRN (09:30)
[2021-11-05] MEDS ORDERED: ACETAMINOPHEN 325MG TABLET PO PRN (09:30)
[2021-11-05] MEDS ORDERED: NALOXONE HCL 0.4MG/ML VIAL IV PRN (09:45)
[2021-11-05] MEDS ORDERED: MORP10SY6 MT (10:04)
[2021-11-05] MEDS ORDERED: INFLUENZA VACCINE 05/PF 0.5 ML SYRINGE IM ONE (10:15)
[2021-11-05] MEDS ORDERED: PNEUMOCOCCAL 23-VAL P-SAC VAC 0.5 ML IM ONE (10:15)
[2021-11-05 12:00] VITALS: BP 145/66
[2021-11-05] MEDS: MEROPENEM 1,000 MG in SODIUM CHLORIDE 0.9% 100 ML IV SCH ×2 (14:31→18:43)
[2021-11-05] MEDS: SODIUM CHLORIDE 0.9% 1,000 ML IV SCH (14:32)
[2021-11-05 16:00] VITALS: BP 153/82
[2021-11-05] MEDS ORDERED: DOCU250C69 MT (18:56)
[2021-11-05] MEDS ORDERED: MORP15TA67 MT (18:56)
[2021-11-05] MEDS ORDERED: CITA10SO PO (18:57)
[2021-11-05] MEDS ORDERED: SENN-257 MT (18:57)
[2021-11-05] MEDS ORDERED: ONDA4TAB5 MT (18:58)
[2021-11-05] MEDS ORDERED: TRAZ-251 MT (18:58)
[2021-11-05] MEDS ORDERED: MIRT-89 MT (18:59)
[2021-11-05 20:00] VITALS: BP 138/70
[2021-11-06] VITALS: BP 124/81
[2021-11-06] MEDS: SODIUM CHLORIDE 0.9% 1,000 ML IV SCH ×2 (01:16→15:25)
[2021-11-06] MEDS: MEROPENEM 1,000 MG in SODIUM CHLORIDE 0.9% 100 ML IV SCH ×3 (01:16→18:00)
[2021-11-06] MEDS: ONDANSETRON HCL 4MG/2ML INJ IV PRN ×2 (01:22→05:52)
[2021-11-06 04:00] VITALS: BP 141/101
[2021-11-06 08:00] VITALS: BP 161/120
[2021-11-06 09:45] LABS: HEMATOCRIT. 47.2 % (36.0-48.0); MEAN CORPUSCULAR HEMOGLOBIN 29.3 pg (28.0-32.0); MEAN PLATELET VOLUME 9.1 fl (7.4-10.4); PLATELET 72 x1000/uL (130-400); RED BLOOD CELL COUNT 5.13 mill/uL (4.2-5.4); RED CELL DISTRIBUTION WIDTH 18.1 % (11.6-14.6)
[2021-11-06 12:00] VITALS: BP 151/112
[2021-11-06] MEDS: HYDROCODONE/ACETAMINOPHEN 10/325MG TABLET PO PRN ×2 (14:47→20:39)
[2021-11-06 16:00] VITALS: BP 130/92
[2021-11-06 16:17] LABS: PLATELET ESTIMATE DECREASED
[2021-11-06] MEDS: MORPHINE SULFATE 15MG TABLET SR PO SCH ×2 (19:01→21:35)
[2021-11-06 20:00] VITALS: BP 158/117
[2021-11-06] MEDS ORDERED: NITR100C MT (20:16)
[2021-11-06] MEDS ORDERED: FLUC200T51 MT (20:16)
[2021-11-06] MEDS: ONDANSETRON HCL 4MG TABLET PO PRN (20:38)
[2021-11-06] MEDS: FLUCONAZOLE 200 MG/100ML BAG 100 ML IV SCH (22:00)
[2021-11-07] VITALS: BP 136/102
[2021-11-07] MEDS: MEROPENEM 1,000 MG in SODIUM CHLORIDE 0.9% 100 ML IV SCH ×3 (02:00→17:09)
[2021-11-07 04:00] VITALS: BP 134/97
[2021-11-07] MEDS: SODIUM CHLORIDE 0.9% 1,000 ML IV SCH ×2 (04:45→17:11)
[2021-11-07 08:00] VITALS: BP 130/94
[2021-11-07] MEDS: MORPHINE SULFATE 15MG TABLET SR PO SCH ×2 (10:21→20:53)
[2021-11-07 12:00] VITALS: BP 120/74
[2021-11-07 16:00] VITALS: BP 140/98
[2021-11-07] MEDS: ONDANSETRON HCL 4MG TABLET PO PRN ×2 (16:35→21:00)
[2021-11-07] MEDS: AMLODIPINE 5MG TABLET PO SCH (17:37)
[2021-11-07 18:44] LABS: INR 1.4; PROTHROMBIN TIME 14.7 sec (9.6-11.0)
[2021-11-07 20:00] VITALS: BP 145/93
[2021-11-07] MEDS: FLUCONAZOLE 200 MG/100ML BAG 100 ML IV SCH (21:00)
[2021-11-08] VITALS (22 sets, daily range): BP systolic 106–142; BP diastolic 66–97
[2021-11-08] MEDS: MEROPENEM 1,000 MG in SODIUM CHLORIDE 0.9% 100 ML IV SCH ×3 (01:34→18:53)
[2021-11-08] MEDS: SODIUM CHLORIDE 0.9% 1,000 ML IV SCH ×2 (06:52→22:34)
[2021-11-08 07:39] LABS: BASOPHILS % 0.1 % (0.0-2.0); EOSINOPHILS % 0.2 % (0.0-5.0); HEMATOCRIT. 40.2 % (36.0-48.0); HEMOGLOBIN. 13.1 g/dL (12.0-16.0); LYMPHOCYTES % 5.6 % (20.0-50.0); MEAN CORPUSCULAR HEMOGLOBIN 29.4 pg (28.0-32.0); MEAN PLATELET VOLUME 10.4 fl (7.4-10.4); MONOCYTES % 3.5 % (2.0-8.0); NEUTROPHILS % 90.6 % (40.0-76.0); RED BLOOD CELL COUNT 4.47 mill/uL (4.2-5.4); RED CELL DISTRIBUTION WIDTH 18.1 % (11.6-14.6)
[2021-11-08 08:01] LABS: PLATELET 46 x1000/uL (130-400)
[2021-11-08] MEDS ORDERED: LIDOCAINE HCL 1% 20ML VIAL (Pyxis) INJ ONE (08:07)
[2021-11-08] MEDS ORDERED: IOHEXOL-300 50 ML BOTTLE IV ONE (08:07)
[2021-11-08] MEDS ORDERED: FENTANYL CITRATE/PF 50MCG/ML 2ML VIAL ONE (08:52)
[2021-11-08] MEDS ORDERED: FENTANYL CITRATE/PF 50MCG/ML 2ML VIAL IV ONE (09:00)
[2021-11-08] MEDS: MORPHINE SULFATE 15MG TABLET SR PO SCH ×2 (10:30→21:16)
[2021-11-08] MEDS: AMLODIPINE 5MG TABLET PO SCH (10:31)
[2021-11-08 20:43] LABS: PLATELET ESTIMATE MARKEDLY DECREASED
[2021-11-08] MEDS: FLUCONAZOLE 200 MG/100ML BAG 100 ML IV SCH (21:16)
[2021-11-09] VITALS: BP 120/84
[2021-11-09] MEDS: MEROPENEM 1,000 MG in SODIUM CHLORIDE 0.9% 100 ML IV SCH ×3 (01:05→17:08)
[2021-11-09 04:00] VITALS: BP 101/62
[2021-11-09 08:00] VITALS: BP 114/78
[2021-11-09] MEDS: MORPHINE SULFATE 15MG TABLET SR PO SCH ×2 (08:55→22:26)
[2021-11-09] MEDS: AMLODIPINE 5MG TABLET PO SCH (08:56)
[2021-11-09] MEDS: SODIUM CHLORIDE 0.9% 1,000 ML IV SCH (09:01)
[2021-11-09 12:00] VITALS: BP 123/70
[2021-11-09 16:00] VITALS: BP 117/83
[2021-11-09 20:00] VITALS: BP 124/84
[2021-11-10] VITALS: BP 111/68
[2021-11-10 04:00] VITALS: BP 134/82
[2021-11-10 08:00] VITALS: BP 119/84
[2021-11-10] MEDS: MORPHINE SULFATE 15MG TABLET SR PO SCH (09:46)
[2021-11-10] MEDS: AMLODIPINE 5MG TABLET PO SCH (09:47)
[2021-11-10 12:00] VITALS: BP 122/80
[2021-11-10 12:51] VITALS: BP 122/80
[2021-11-10 16:00] VITALS: BP 113/77
== END 2021-11-10 18:21 | disposition hospice, home (50) | DRG 720 ==
LOC: ER 16:20 → ENRESERV 11-05 07:38 → 7EST 11-05 09:10 → 5WST 11-09 16:02
PROVIDERS: ADMIT Internal Medicine; ATTEND Internal Medicine
PROC: 02HV33Z Insertion of Infusion Device into Superior Vena Cava, Percutaneous Approach (ICD-10-PCS; 2021-11-07)
PROC: B518ZZA Fluoroscopy of Superior Vena Cava, Guidance (ICD-10-PCS; 2021-11-07)
PROC: B548ZZA Ultrasonography of Superior Vena Cava, Guidance (ICD-10-PCS; 2021-11-07)
PROC: 0T9030Z Drainage of Right Kidney with Drainage Device, Percutaneous Approach (ICD-10-PCS; principal; 2021-11-08)
PROC: BT11ZZZ Fluoroscopy of Right Kidney (ICD-10-PCS; 2021-11-08)
PROC: BT41ZZZ Ultrasonography of Right Kidney (ICD-10-PCS; 2021-11-08)
DX: A41.51 Sepsis due to Escherichia coli [E. coli] (principal); E43 Unspecified severe protein-calorie malnutrition; D69.6 Thrombocytopenia, unspecified; E87.1 Hypo-osmolality and hyponatremia; G90.8 Other disorders of autonomic nervous system; E88.09 Other disorders of plasma-protein metabolism, not elsewhere classified; Z20.822 Contact with and (suspected) exposure to COVID-19; C67.9 Malignant neoplasm of bladder, unspecified; N39.0 Urinary tract infection, site not specified; L97.929 Non-pressure chronic ulcer of unspecified part of left lower leg with unspecified severity; Z66 Do not resuscitate; L97.919 Non-pressure chronic ulcer of unspecified part of right lower leg with unspecified severity; Z51.5 Encounter for palliative care; Z82.49 Family history of ischemic heart disease and other diseases of the circulatory system; Z85.51 Personal history of malignant neoplasm of bladder; Z86.73 Personal history of transient ischemic attack (TIA), and cerebral infarction without residual deficits; Z90.49 Acquired absence of other specified parts of digestive tract; Z93.6 Other artificial openings of urinary tract status; Z88.0 Allergy status to penicillin; Z79.891 Long term (current) use of opiate analgesic; Z79.899 Other long term (current) drug therapy; Z68.35 Body mass index [BMI] 35.0-35.9, adult
CPT/HCPCS: 36415; 36573; 50432; 80048; 80053; 81003; 82962; 84145; 84484; 85025; 87186; 87426; 90686; 90732; 93005; 99152; 99153; 99285; C1725; C1729; C1760; C1769; J1450; J1956; J2185; J2405; J3010; J3490; J7030; J7040; J7050; L8514; Q0162; Q9967; G0500